=== PATIENT | female | born 1985 | race Two or more races ===

== ENCOUNTER 2023-11-30 18:05 | Emergency (ER) | payer SELFPAY ==
[~2023-11-30] VITALS: Ht 160 cm; Wt 78.2 kg
[2023-11-30 18:12] VITALS: BP 186/83; PULSE 90; RESP 18; O2SAT 99
== END 2023-11-30 23:01 | disposition left against medical advice (07) ==
LOC: ER 18:05
DX: L50.9 Urticaria, unspecified (principal); Z53.21 Procedure and treatment not carried out due to patient leaving prior to being seen by health care provider